=== PATIENT | male | born 1975 | race Caucasian/White ===

== ENCOUNTER → 2017-02-11 | Outpatient (CLI) | payer OTHER ==
[2017-02-11 11:25] LABS: BASO # 0.1 x10^3/uL (0.0-0.2); BASO % 1 % (0-3); EOS % 2 % (0-3); HEMATOCRIT 48.4 % (39.0-53.0); HEMOGLOBIN 16.5 g/dL (13.0-17.5); LYMPH # 2.4 x10^3/uL (1.0-4.8); LYMPH % 24 % (24-48); MEAN CORPUSCULAR HEMOGLOBIN 30 pg (25-35); MEAN CORPUSCULAR HGB CONC 34 g/dL (31-37); MEAN CORPUSCULAR VOLUME 87 fL (79-100); MONO % 8 % (0-9); NEUT % 66 % (31-73); PLATELET COUNT 170 x10^3/uL (140-400); RED BLOOD COUNT 5.58 x10^6/uL (4.30-5.70); RED CELL DISTRIBUTION WIDTH 14.3 % (11.5-14.5); WHITE BLOOD COUNT 10.2 x10^3/uL (4.0-11.0)
[2017-02-11 11:39] LABS: ALBUMIN 4.4 g/dL (3.4-5.0); ALBUMIN/GLOBULIN RATIO 1.1 (1.0-1.7); CALCIUM 9.6 mg/dL (8.5-10.1); CREATININE 1.4 mg/dL (0.7-1.3); GFR 55.6; POTASSIUM 3.8 mmol/L (3.5-5.1); TOTAL BILIRUBIN 0.7 mg/dL (0.2-1.0); TOTAL PROTEIN 8.3 g/dL (6.4-8.2)
[2017-02-11 11:40] LABS: CHOLESTEROL/HDL RATIO 7.3
== END | disposition home or self-care (01) ==
LOC: LAB 11:02
PROVIDERS: ATTEND Family Medicine
DX: I10 Essential (primary) hypertension (principal); E11.9 Type 2 diabetes mellitus without complications; E78.5 Hyperlipidemia, unspecified
CPT/HCPCS: 36415; 80053; 80061; 83036; 85027

== ENCOUNTER 2019-02-08 09:39 | Inpatient (IN) | payer OTHER ==
[2019-02-08] VITALS (14 sets, daily range): BP systolic 133–173; BP diastolic 80–108
[~2019-02-08] VITALS: Ht 182.9 cm; Wt 105.2 kg
[2019-02-08] MEDS ORDERED: ASPIRIN CHEWABLE 81 MG TABLET. PO ONE (10:00)
[2019-02-08 10:17] LABS: BASO # 0.1 x10^3/uL (0.0-0.2); BASO % 1 % (0-3); EOS # 0.1 x10^3/uL (0.0-0.7); EOS % 1 % (0-3); HEMATOCRIT 46.6 % (39.0-53.0); HEMOGLOBIN 15.6 g/dL (13.0-17.5); LYMPH # 1.3 x10^3/uL (1.0-4.8); LYMPH % 16 % (24-48); MEAN CORPUSCULAR HEMOGLOBIN 29 pg (25-35); MEAN CORPUSCULAR HGB CONC 34 g/dL (31-37); MEAN CORPUSCULAR VOLUME 87 fL (79-100); MONO # 0.6 x10^3/uL (0.0-1.1); MONO % 8 % (0-9); NEUT # 5.8 x10^3uL (1.8-7.7); NEUT % 74 % (31-73); PLATELET COUNT 141 x10^3/uL (140-400); RED BLOOD COUNT 5.33 x10^6/uL (4.30-5.70); RED CELL DISTRIBUTION WIDTH 14.2 % (11.5-14.5); WHITE BLOOD COUNT 7.9 x10^3/uL (4.0-11.0)
--- NOTE | 2019-02-08 10:28 | RAD ---
Chest radiograph 02/08/2019 9:57 AM INDICATION: Chest pain COMPARISON: None available TECHNIQUE: Frontal and lateral views of the chest are provided. FINDINGS: The cardiomediastinal silhouette is within normal limits. There are no pleural effusions. There is no pulmonary vascular congestion. There is no pneumothorax. The lungs are clear. No significant osseous abnormality is identified. IMPRESSION: No acute cardiopulmonary process. Electronically signed by: Enriqueta Mistry MD (02/08/2019 10:25 AM) [facility]
[2019-02-08 10:30] LABS: CALCIUM 9.3 mg/dL (8.5-10.1); GFR 81.2
[2019-02-08 10:31] LABS: PROTHROMBIN TIME PATIENT 12.4 SEC (11.7-14.0)
[2019-02-08 10:37] LABS: ALBUMIN 4.1 g/dL (3.4-5.0); ALBUMIN/GLOBULIN RATIO 1.2 (1.0-1.7); MAGNESIUM 1.9 mg/dL (1.8-2.4); TOTAL BILIRUBIN 0.7 mg/dL (0.2-1.0); TOTAL PROTEIN 7.6 g/dL (6.4-8.2)
--- NOTE | 2019-02-08 10:39 | RAD ---
CLINICAL HISTORY: Chest pain COMPARISON: None available. TECHNIQUE: Limited ultrasound examination of the right upper quadrant of the abdomen was performed FINDINGS: Liver: The liver measures 20.2 cm in length in the right mid clavicular line. Hepatic margin is smooth. Increased echogenicity of the liver consistent with hepatic steatosis.. There is no focal abnormality of the liver. Portal and hepatic venous flow is confirmed with normal waveforms. Pancreas is mostly obscured by overlying bowel gas. Gallbladder/Biliary: The gallbladder is normal in appearance without evidence for cholelithiasis. There is no wall thickening or pericholecystic fluid. There is no pain with direct transducer pressure over the gallbladder.The common bile duct measures 0.4 cm. The right kidney measures 13.4 cm in bipolar length. There is no free fluid in the subhepatic space. IMPRESSION: Hepatomegaly and hepatic steatosis. Electronically signed by: Wagner Mccormick MD (02/08/2019 10:36 AM) [id number]
--- NOTE | 2019-02-08 10:59 | PHYS DOC ---
Past Medical History Past Medical History: Diabetes-Type II, High Cholesterol, Hypertension Past Surgical History: Other Additional Past Surgical Histo: KNEE Alcohol Use: None Drug Use: None Adult General Chief Complaint Chief Complaint: CHEST PAIN HPI HPI Patient is a 43 year old male who presents with complaining of chest pain. Patient complaining of burning pain in the substernal area since yesterday as a constant pain with radiation to his jaw and associated with shortness of breath, dizziness, palpitation and nausea. Patient states he did not have pain last night but pain started this morning again and rated his pain 7/10. Patient denies fever and chills, cough and congestion, smoking or using drugs. Patient has history of hypertension, diabetes, dyslipidemia and did not take his diabetes medication for months because of lack of insurance. Review of Systems Review of Systems Constitutional: Denies fever or chills [] Eyes: Denies change in visual acuity, redness, or eye pain [] HENT: Denies nasal congestion or sore throat [] Respiratory: Denies cough , reports shortness of breath [] Cardiovascular: No additional information not addressed in HPI [] GI: Denies abdominal pain, vomiting, bloody stools or diarrhea , reports nausea[] : Denies dysuria or hematuria [] Musculoskeletal: Denies back pain or joint pain [] Integument: Denies rash or skin lesions [] Neurologic: Denies headache, focal weakness or sensory changes [] Endocrine: Denies polyuria or polydipsia [] All other systems were reviewed and found to be within normal limits, except as documented in this note. Current Medications Current Medications Current Medications Medications (Trade) Dose Ordered Sig/[facility] Start Time Stop Time Status Last Admin Dose Admin Aspirin (Children'S Aspirin) 324 mg 1X ONCE 02/08/19 10:00 02/08/19 10:27 DC 02/08/19 10:00 324 MG Allergies Allergies Physical Exam Physical Exam Constitutional: Well developed, well nourished, mild distress, non-toxic appearance. [] HENT: Normocephalic, atraumatic, oropharynx moist. Eyes: PERRLA, EOMI, conjunctiva normal, no discharge. [] Neck: Normal range of motion, no tenderness, supple, no stridor. [] Cardiovascular:Heart rate regular rhythm, no murmur [] Lungs & Thorax: Bilateral breath sounds clear to auscultation [] Abdomen: Bowel sounds normal, soft, no tenderness, no masses, no pulsatile masses. [] Skin: Warm, dry, no erythema, no rash. [] Back: No tenderness, no CVA tenderness. [] Extremities: No tenderness, no cyanosis, no clubbing, ROM intact, no edema. [] Neurologic: Alert and oriented X 3, normal motor function, normal sensory f unction, no focal deficits noted. [] Psychologic: Affect normal, judgement normal, mood normal. [] Current Patient Data Vital Signs Lab Values EKG EKG EKG Interpreted by me. EKG at 0 947 showed normal sinus rhythm at rate of 87, right bundle branch block, normal ID and QT intervals, no acute ST and T-wave abnormalities. Radiology/Procedures Radiology/Procedures [facility] [address] [place] [address] IMAGING REPORT Signed PATIENT: JUSTINE MCGUIRE ACCOUNT: [id number] : 1975 LOCATION: ER AGE: 43 SEX: M EXAM STATUS: PRE ER ORD. PHYSICIAN: TOMASZ RICKS MD REASON: chest pain PROCEDURE: ABDOMEN LTD CLINICAL HISTORY: Chest pain COMPARISON: None available. TECHNIQUE: Limited ultrasound examination of the right upper quadrant of the abdomen was performed FINDINGS: Liver: The liver measures 20.2 cm in length in the right mid clavicular line. Hepatic margin is smooth. Increased echogenicity of the liver consistent with hepatic steatosis.. There is no focal abnormality of the liver. Portal and hepatic venous flow is confirmed with normal waveforms. Pancreas is mostly obscured by overlying bowel gas. Gallbladder/Biliary: The gallbladder is normal in appearance without evidence for cholelithiasis. There is no wall thickening or pericholecystic fluid. There is no pain with direct transducer pressure over the gallbladder.The common bile duct measures 0.4 cm. The right kidney measures 13.4 cm in bipolar length. There is no free fluid in the subhepatic space. IMPRESSION: Hepatomegaly and hepatic steatosis. Electronically signed by: Wagner Duke MD (02/08/2019 10:36 AM) [id number] DICTATED and SIGNED BY: WAGNER DUKE MD DATE: 02/08/19 1036 [facility] [address] [place] [address] IMAGING REPORT Signed PATIENT: JUSTINE MCGUIRE ACCOUNT: [id number] : 1975 LOCATION: ER AGE: 43 SEX: M EXAM STATUS: PRE ER ORD. PHYSICIAN: TOMASZ RICKS MD REASON: chest pain,pt states feels like heartburn, denies trouble breathing. PROCEDURE: CHEST PA & LATERAL Chest radiograph 02/08/2019 9:57 AM INDICATION: Chest pain COMPARISON: None available TECHNIQUE: Frontal and lateral views of the chest are provided. FINDINGS: The cardiomediastinal silhouette is within normal limits. There are no pleural effusions. There is no pulmonary vascular congestion. There is no pneumothorax. The lungs are clear. No significant osseous abnormality is identified. IMPRESSION: No acute cardiopulmonary process. Electronically signed by: Mukesh Stinson MD (02/08/2019 10:25 AM) [facility] DICTATED and SIGNED BY: MUKESH STINSON MD DATE: 02/08/19 1025 Course & Med Decision Making Course & Med Decision Making Pertinent Labs and Imaging studies reviewed. (See chart for details) Evaluation of patient in ER showed 43-year-old male patient with multiple cardiac risk factors presented with chest pain since yesterday. Patient had unremarkable EKG, labs, gallbladder ultrasound. Because of several cardiac risk factor plan to admit patient for more evaluation. Patient requiring admission for further evaluation and treatment. Discussed with Dr. Barr who is in agreement with admission. Discussed findings and plan with patient and family, who acknowledge understanding and agreement. While patient was holding in ER , he had asymptomatic episode of V. tach for a few seconds. Dr. Del Angel nurse practitioner was informed at 1210 and he evaluated the patient in ER. Dragon Disclaimer Dragon Disclaimer This electronic medical record was generated, in whole or in part, using a voice recognition dictation system. Departure Departure Impression: Primary Impression: Chest pain Additional Impression: V tach Disposition: ADMITTED INPATIENT (Admitted at 11 intermittent) Admitting Physician: Ami Barr (accepted admission at 1110) Condition: IMPROVED Referrals: UNKNOWN PCP NAME (PCP) Problem Qualifiers Primary Impression: Chest pain Chest pain type: unspecified Qualified Codes: R07.9 - Chest pain, unspecified TOMASZ RICKS MD February 08, 2019 10:59
--- NOTE | 2019-02-08 11:57 | EKG ---
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
--- NOTE | 2019-02-08 12:10 | NUR ---
The patient, JUSTINE MCGUIRE, 43 y/o, M admitted by MERY MCGOWAN MD, was given written information regarding hospital policies, unit procedures and contact persons. Valuables were checked.
--- NOTE | 2019-02-08 12:47 | PDOC2 ---
REYNALDO LAM TRAFFIC PERSONNEL SUPERVISOR 02/08/19 1247: CARDIAC CONSULT DATE OF CONSULT Date of Consult DATE: 02/08/19 TIME: 12:33 REASON FOR CONSULT Reason for Consult: Chest pain, VT REFERRING PHYSICIAN Referring Physician: Soniya SOURCE Source: Chart review, Patient HISTORY OF PRESENT ILLNESS HISTORY OF PRESENT ILLNESS This is a pleasant 43 yo male admitted for complains of chest pain and SOA. Pt is currently stressed out and in the process of divorce and dealing with his daughter who recently had some suicidal tendencies. Pt has DM2, HLP, HTN and has been tapering his medications due to lack of insurance which he has not straightened out and now has health coverage. Throughout the day yesterday he has been feeling heartburn across his lower chest and tried to treat self with tums but did not help much and then finally dissipated with and was able to go to sleep. He was at his PCPs office yesterday and told them about his symptoms and he was told that if recurs to come to ED. This recurred this 5 AM and lasted till 6 AM. This was associated with SOA along with his discomfort yesterday. Somewhat fatigue but blames it on his stress. He did experience left arm tingling Sandra last week. He was told 07/2018 that his EKG was checked on 07/2018 and was told that the right side of his heart was fat but does not recall any echocardiogram and definitely no stress test. Denies any palpitations, syncope, or frequent dizziness. No prior hx of CAD, VTE, or arrhythmias. PAST MEDICAL HISTORY Cardiovascular: HTN, Hyperlipidemia PAST SURGICAL HISTORY Past Surgical History: Arthroscopy (right knee repair) FAMILY HISTORY Family History: Coronary Artery Disease (grandmother premature CAD) SOCIAL HISTORY Smoke: No ALCOHOL: none Drugs: None Lives: with Family CURRENT MEDICATIONS CURRENT MEDICATIONS Current Medications Medications (Trade) Dose Ordered Sig/Alba Route PRN Reason Start Time Stop Time Status Last Admin Dose Admin Aspirin (Children'S Aspirin) 324 mg 1X ONCE PO 02/08/19 10:00 02/08/19 10:27 DC 02/08/19 10:00 ALLERGIES ALLERGIES: Coded Allergies: cortisone (Verified Allergy, Unknown, PSYCHOSIS, 02/08/19) ROS Review of System 14 point ROS evaluated with pertinent positives noted per HPI PHYSICAL EXAM General: Alert, Oriented X3, Cooperative, No acute distress HEENT: Atraumatic, Mucous membr. moist/pink Lungs: Clear to auscultation, Normal air movement Heart: Regular rate (SR), Normal S1, Normal S2, Other (2/6 systolic murmur to LLS border) Abdomen: Soft, No tenderness Extremities: No cyanosis, No edema Skin: No breakdown, No significant lesion Neuro: Normal speech, Sensation intact Psych/Mental Status: Mental status NL, Other (anxious) MUSCULOSKELETAL: Osteoarthritic changes both hands VITALS VITALS Vital Signs Date Time Temp Pulse Resp B/P (MAP) Pulse Ox O2 Delivery O2 Flow Rate FiO2 02/08/19 10:26 98.3 91 18 151/101 (118) 97 Room Air 98.3 LABS Lab: Laboratory Tests Test 02/08/19 10:10 White Blood Count 7.9 x10^3/uL (4.0-11.0) Red Blood Count 5.33 x10^6/uL (4.30-5.70) Hemoglobin 15.6 g/dL (13.0-17.5) Hematocrit 46.6 % (39.0-53.0) Mean Corpuscular Volume 87 fL (79-100) Mean Corpuscular Hemoglobin 29 pg (25-35) Mean Corpuscular Hemoglobin Concent 34 g/dL (31-37) Red Cell Distribution Width 14.2 % (11.5-14.5) Platelet Count 141 x10^3/uL (140-400) Neutrophils (%) (Auto) 74 % (31-73) Lymphocytes (%) (Auto) 16 % (24-48) Monocytes (%) (Auto) 8 % (0-9) Eosinophils (%) (Auto) 1 % (0-3) Basophils (%) (Auto) 1 % (0-3) Neutrophils # (Auto) 5.8 x10^3uL (1.8-7.7) Lymphocytes # (Auto) 1.3 x10^3/uL (1.0-4.8) Monocytes # (Auto) 0.6 x10^3/uL (0.0-1.1) Eosinophils # (Auto) 0.1 x10^3/uL (0.0-0.7) Basophils # (Auto) 0.1 x10^3/uL (0.0-0.2) Prothrombin Time 12.4 SEC (11.7-14.0) Prothromb Time International Ratio 1.0 (0.8-1.1) Sodium Level 141 mmol/L (136-145) Potassium Level 4.0 mmol/L (3.5-5.1) Chloride Level 103 mmol/L (98-107) Carbon Dioxide Level 27 mmol/L (21-32) Anion Gap 11 (6-14) Blood Urea Nitrogen 15 mg/dL (8-26) Creatinine 1.0 mg/dL (0.7-1.3) Estimated GFR (Cockcroft-Gault) 81.2 BUN/Creatinine Ratio 15 (6-20) Glucose Level 208 mg/dL (70-99) Calcium Level 9.3 mg/dL (8.5-10.1) Magnesium Level 1.9 mg/dL (1.8-2.4) Total Bilirubin 0.7 mg/dL (0.2-1.0) Aspartate Amino Transf (AST/SGOT) 10 U/L (15-37) Alanine Aminotransferase (ALT/SGPT) 27 U/L (16-63) Alkaline Phosphatase 59 U/L (46-116) Creatine Kinase 91 U/L (39-308) Troponin I Quantitative < 0.017 ng/mL (0.000-0.055) RU-Sdy-G-Type Natriuretic Peptide 98 pg/mL (0-124) Total Protein 7.6 g/dL (6.4-8.2) Albumin 4.1 g/dL (3.4-5.0) Albumin/Globulin Ratio 1.2 (1.0-1.7) Lipase 103 U/L (73-393) ASSESSMENT/PLAN ASSESSMENT/PLAN 1. Chest pain: with mixed features. Ischemia high in the differential suspect UA. Initial trop nml 2. NSVT: 10 sec 3. Abnormal EKG: RBBB possibly noted 07/2018 at [facility]. 4. HTN: labile. [id number] 5. HLP 6. DM2 7. Anxiety/stress 8. Morbid obesity with possible BARTON 9. Periodontal disease Recommendations 1. TTE, TSH, lipids, A1C, CRP 2. ASA. Start IVF. LHC today, risks and benefits discussed agreeable to proceed. 3. Secondary prevention measures ROSSANA PURVIS MD 02/09/19 0857: CARDIAC CONSULT ASSESSMENT/PLAN ASSESSMENT/PLAN Patient seen and examined 5/7/19. Agree with [employer]'s assessment and plan. CP with mixed features. TX ruled out. Episode of NSVT noted. Agree with cardiac cath - risks and benefits explained Thank you for your consultation REYNALDO LAM APRN February 08, 2019 12:47 ROSSANA PURVIS MD February 09, 2019 08:57
[2019-02-08 13:09] LABS: CHOLESTEROL/HDL RATIO 4.5
[2019-02-08] MEDS ORDERED: amLODIPine BESYLATE 10 MG TABLET PO ONE (13:30)
[2019-02-08] MEDS ORDERED: LABETALOL 20 MG/4 ML DISP.SYRIN. IVP PRN (13:30)
[2019-02-08 13:32] LABS: BILIRUBIN,URINE NEGATIVE (NEG); CLARITY,URINE CLEAR; COLOR,URINE YELLOW; NITRITE,URINE NEGATIVE (NEG); PH,URINE 6.5; PROTEIN,URINE NEGATIVE (NEG-TRACE); UROBILINOGEN,URINE 0.2 mg/dL (0.2 mg/dL)
[2019-02-08 13:40] LABS: BARBITURATES NEG (NEG); BENZODIAZEPINES NEG (NEG); CANNABINOIDS NEG (NEG); COCAINE NEG (NEG); METHADONE NEG (NEG); OPIATES NEG (NEG); PHENCYCLIDINE NEG (NEG)
[2019-02-08 13:41] LABS: AMPHETAMINE/METHAMPHETAMINE NEG (NEG)
[2019-02-08 13:42] LABS: BACTERIA,URINE 0 /HPF (0-FEW); HYALINE CASTS, URINE FEW /HPF; RBC,URINE OCC /HPF (0-2); WBC,URINE OCC /HPF (0-4)
--- NOTE | 2019-02-08 13:51 | PDOC1 ---
History and Physical Date of Admission Date of Admission DATE: 02/08/19 TIME: 13:47 Identification/Chief Complaint Chief Complaint chest pain at rest Source Source: Caregiver, Chart review, Patient History of Present Illness History of Present Illness 43-year-old heavyset white male, BMI 32, recently stressed with undergoing divorce and the daughter with some suicidal history, chest pain happened at rest. Some SOA, no diaphoresis, no pre, syncopal symptoms. Left-sided CP, no radiation. Lasted intermittently for hours. NO identifiable alleviating or precip factor, Advised by PCP to come to the ER. Labs are otherwise unremarka ble but because of risk factors planned for LHC later by cardiology. CRP 5.6 the rest of the labs okay. Blood pressure on the high side. History diabetes on OHA with unknown hemoglobin A1c, hypertension, dyslipidemia. No history CVA Agreeable to C Past Medical History Cardiovascular: HTN, Hyperlipidemia Endocrine: Diabetes Past Surgical History Past Surgical History: Arthroscopy (right knee repair) Family History Family History: Coronary Artery Disease (grandmother premature CAD), Heart Disease (grandmother age 55) Social History Smoke: No ALCOHOL: none Drugs: None Current Medications Current Medications Current Medications Aspirin (Children'S Aspirin) 324 mg 1X ONCE PO Last administered on 02/08/19at 10:00; Start 02/08/19 at 10:00; Stop 02/08/19 at 10:27; Status DC Atorvastatin Calcium (Lipitor) 40 mg QHS PO ; Start 02/08/19 at 21:00 Pantoprazole Sodium (Protonix) 40 mg DAILYAC PO ; Start 02/08/19 at 14:00 Amlodipine Besylate (Norvasc) 10 mg 1X ONCE PO ; Start 02/08/19 at 13:30; Stop 02/08/19 at 13:31; Status DC Labetalol HCl (Normodyne Iv Push) 20 mg PRN Q2HR PRN IVP HYPERTENSION, SEE COMMENTS; Start 02/08/19 at 13:30 Allergies Allergies: Coded Allergies: cortisone (Verified Allergy, Unknown, PSYCHOSIS, 02/08/19) ROS Review of System As per history of present illness, the rest of ROS 14 point negative Physical Exam General: Alert, Oriented X3, Cooperative, No acute distress HEENT: PERRLA, EOMI Lungs: Clear to auscultation, Normal air movement Heart: S1S2, RRR, no thrills, no rubs, no gallops, no murmurs Cardiovascular: S1 Abdomen: Normal bowel sounds, Soft, No tenderness, No hepatosplenomegaly, No masses Male Genitals Exam: normal genitalia, normal prostate Rectal Exam: not examined PELVIC: Nml ext genitalia Extremities: No clubbing, No cyanosis, No edema, Normal pulses, No tenderness/swelling Skin: No rashes, No breakdown, No significant lesion Neuro: Normal gait, Normal speech, Strength at 5/5 X4 ext, Normal tone, S ensation intact, Cranial nerves 3-12 NL, Reflexes 2+ Psych/Mental Status: Mental status NL, Mood NL Vitals Vitals Vital Signs Date Time Temp Pulse Resp B/P (MAP) Pulse Ox O2 Delivery O2 Flow Rate FiO2 02/08/19 10:26 98.3 91 18 151/101 (118) 97 Room Air 98.3 Labs Labs Laboratory Tests Test 02/08/19 10:10 02/08/19 13:00 White Blood Count 7.9 x10^3/uL (4.0-11.0) Red Blood Count 5.33 x10^6/uL (4.30-5.70) Hemoglobin 15.6 g/dL (13.0-17.5) Hematocrit 46.6 % (39.0-53.0) Mean Corpuscular Volume 87 fL (79-100) Mean Corpuscular Hemoglobin 29 pg (25-35) Mean Corpuscular Hemoglobin Concent 34 g/dL (31-37) Red Cell Distribution Width 14.2 % (11.5-14.5) Platelet Count 141 x10^3/uL (140-400) Neutrophils (%) (Auto) 74 % (31-73) Lymphocytes (%) (Auto) 16 % (24-48) Monocytes (%) (Auto) 8 % (0-9) Eosinophils (%) (Auto) 1 % (0-3) Basophils (%) (Auto) 1 % (0-3) Neutrophils # (Auto) 5.8 x10^3uL (1.8-7.7) Lymphocytes # (Auto) 1.3 x10^3/uL (1.0-4.8) Monocytes # (Auto) 0.6 x10^3/uL (0.0-1.1) Eosinophils # (Auto) 0.1 x10^3/uL (0.0-0.7) Basophils # (Auto) 0.1 x10^3/uL (0.0-0.2) Prothrombin Time 12.4 SEC (11.7-14.0) Prothromb Time International Ratio 1.0 (0.8-1.1) Sodium Level 141 mmol/L (136-145) Potassium Level 4.0 mmol/L (3.5-5.1) Chloride Level 103 mmol/L (98-107) Carbon Dioxide Level 27 mmol/L (21-32) Anion Gap 11 (6-14) Blood Urea Nitrogen 15 mg/dL (8-26) Creatinine 1.0 mg/dL (0.7-1.3) Estimated GFR (Cockcroft-Gault) 81.2 BUN/Creatinine Ratio 15 (6-20) Glucose Level 208 mg/dL (70-99) Calcium Level 9.3 mg/dL (8.5-10.1) Magnesium Level 1.9 mg/dL (1.8-2.4) Total Bilirubin 0.7 mg/dL (0.2-1.0) Aspartate Amino Transf (AST/SGOT) 10 U/L (15-37) Alanine Aminotransferase (ALT/SGPT) 27 U/L (16-63) Alkaline Phosphatase 59 U/L (46-116) Creatine Kinase 91 U/L (39-308) Troponin I Quantitative < 0.017 ng/mL (0.000-0.055) C-Reactive Protein, Quantitative 5.6 mg/L (0-3.3) QM-Ukk-K-Type Natriuretic Peptide 98 pg/mL (0-124) Total Protein 7.6 g/dL (6.4-8.2) Albumin 4.1 g/dL (3.4-5.0) Albumin/Globulin Ratio 1.2 (1.0-1.7) Triglycerides Level 95 mg/dL (0-150) Cholesterol Level 188 mg/dL (0-200) LDL Cholesterol, Calculated 127 mg/dL (0-100) VLDL Cholesterol, Calculated 19 mg/dL (0-40) Non-HDL Cholesterol Calculated 146 mg/dL (0-129) HDL Cholesterol 42 mg/dL (40-60) Cholesterol/HDL Ratio 4.5 Lipase 103 U/L (73-393) Thyroid Stimulating Hormone (TSH) 2.730 uIU/mL (0.358-3.74) Urine Collection Type Unknown Urine Color Yellow Urine Clarity Clear Urine pH 6.5 Urine Specific Rogers >=1.030 Urine Protein Negative mg/dL (NEG-TRACE) Urine Glucose (UA) >=1000 mg/dL (NEG) Urine Ketones (Stick) Negative mg/dL (NEG) Urine Blood Negative (NEG) Urine Nitrite Negative (NEG) Urine Bilirubin Negative (NEG) Urine Urobilinogen Dipstick 0.2 mg/dL (0.2 mg/dL) Urine Leukocyte Esterase Negative (NEG) Urine RBC Occ /HPF (0-2) Urine WBC Occ /HPF (0-4) Urine Bacteria 0 /HPF (0-FEW) Urine Hyaline Casts Few /HPF Urine Mucus Slight /LPF Urine Opiates Screen Neg (NEG) Urine Methadone Screen Neg (NEG) Urine Barbiturates Neg (NEG) Urine Phencyclidine Screen Neg (NEG) Urine Amphetamine/Methamphetamine Neg (NEG) Urine Benzodiazepines Screen Neg (NEG) Urine Cocaine Screen Neg (NEG) Urine Cannabinoids Screen Neg (NEG) Urine Ethyl Alcohol Neg (NEG) Laboratory Tests Test 02/08/19 10:10 02/08/19 13:00 White Blood Count 7.9 x10^3/uL (4.0-11.0) Red Blood Count 5.33 x10^6/uL (4.30-5.70) Hemoglobin 15.6 g/dL (13.0-17.5) Hematocrit 46.6 % (39.0-53.0) Mean Corpuscular Volume 87 fL (79-100) Mean Corpuscular Hemoglobin 29 pg (25-35) Mean Corpuscular Hemoglobin Concent 34 g/dL (31-37) Red Cell Distribution Width 14.2 % (11.5-14.5) Platelet Count 141 x10^3/uL (140-400) Neutrophils (%) (Auto) 74 % (31-73) Lymphocytes (%) (Auto) 16 % (24-48) Monocytes (%) (Auto) 8 % (0-9) Eosinophils (%) (Auto) 1 % (0-3) Basophils (%) (Auto) 1 % (0-3) Neutrophils # (Auto) 5.8 x10^3uL (1.8-7.7) Lymphocytes # (Auto) 1.3 x10^3/uL (1.0-4.8) Monocytes # (Auto) 0.6 x10^3/uL (0.0-1.1) Eosinophils # (Auto) 0.1 x10^3/uL (0.0-0.7) Basophils # (Auto) 0.1 x10^3/uL (0.0-0.2) Prothrombin Time 12.4 SEC (11.7-14.0) Prothromb Time International Ratio 1.0 (0.8-1.1) Sodium Level 141 mmol/L (136-145) Potassium Level 4.0 mmol/L (3.5-5.1) Chloride Level 103 mmol/L (98-107) Carbon Dioxide Level 27 mmol/L (21-32) Anion Gap 11 (6-14) Blood Urea Nitrogen 15 mg/dL (8-26) Creatinine 1.0 mg/dL (0.7-1.3) Estimated GFR (Cockcroft-Gault) 81.2 BUN/Creatinine Ratio 15 (6-20) Glucose Level 208 mg/dL (70-99) Calcium Level 9.3 mg/dL (8.5-10.1) Magnesium Level 1.9 mg/dL (1.8-2.4) Total Bilirubin 0.7 mg/dL (0.2-1.0) Aspartate Amino Transf (AST/SGOT) 10 U/L (15-37) Alanine Aminotransferase (ALT/SGPT) 27 U/L (16-63) Alkaline Phosphatase 59 U/L (46-116) Creatine Kinase 91 U/L (39-308) Troponin I Quantitative < 0.017 ng/mL (0.000-0.055) C-Reactive Protein, Quantitative 5.6 mg/L (0-3.3) EW-Vgp-O-Type Natriuretic Peptide 98 pg/mL (0-124) Total Protein 7.6 g/dL (6.4-8.2) Albumin 4.1 g/dL (3.4-5.0) Albumin/Globulin Ratio 1.2 (1.0-1.7) Triglycerides Level 95 mg/dL (0-150) Cholesterol Level 188 mg/dL (0-200) LDL Cholesterol, Calculated 127 mg/dL (0-100) VLDL Cholesterol, Calculated 19 mg/dL (0-40) Non-HDL Cholesterol Calculated 146 mg/dL (0-129) HDL Cholesterol 42 mg/dL (40-60) Cholesterol/HDL Ratio 4.5 Lipase 103 U/L (73-393) Thyroid Stimulating Hormone (TSH) 2.730 uIU/mL (0.358-3.74) Urine Collection Type Unknown Urine Color Yellow Urine Clarity Clear Urine pH 6.5 Urine Specific Rogers >=1.030 Urine Protein Negative mg/dL (NEG-TRACE) Urine Glucose (UA) >=1000 mg/dL (NEG) Urine Ketones (Stick) Negative mg/dL (NEG) Urine Blood Negative (NEG) Urine Nitrite Negative (NEG) Urine Bilirubin Negative (NEG) Urine Urobilinogen Dipstick 0.2 mg/dL (0.2 mg/dL) Urine Leukocyte Esterase Negative (NEG) Urine RBC Occ /HPF (0-2) Urine WBC Occ /HPF (0-4) Urine Bacteria 0 /HPF (0-FEW) Urine Hyaline Casts Few /HPF Urine Mucus Slight /LPF Urine Opiates Screen Neg (NEG) Urine Methadone Screen Neg (NEG) Urine Barbiturates Neg (NEG) Urine Phencyclidine Screen Neg (NEG) Urine Amphetamine/Methamphetamine Neg (NEG) Urine Benzodiazepines Screen Neg (NEG) Urine Cocaine Screen Neg (NEG) Urine Cannabinoids Screen Neg (NEG) Urine Ethyl Alcohol Neg (NEG) VTE Prophylaxis Ordered VTE Prophylaxis Devices: Yes VTE Pharmacological Prophylaxi: Yes Assessment/Plan Assessment/Plan chest pain with risk factors Hypertension, accelerated POA Diabetes type 2 on OHA unknown A1c Dyslipidemia Obesity Plan: nothing by mouth [facility], check A1c, follow cards recs I have reconciled home meds Sliding-scale insulin MERY MCGOWAN MD February 08, 2019 13:51
[2019-02-08] MEDS: PANTOPRAZOLE 40 MG TABLET.DR. PO SCH (13:55)
[2019-02-08] MEDS ORDERED: IOHEXOL 300 MG/ML 100ML VIAL. ONE (13:57)
[2019-02-08] MEDS ORDERED: LIDOCAINE 1% PF 2 ML VIAL. ONE (13:57)
[2019-02-08] MEDS ORDERED: ACETAMINOPHEN/CODEINE 300/30MG TABLET. PO PRN (14:00)
[2019-02-08] MEDS ORDERED: DEXTROSE 50% 25 GM / 50ML DISP.SYRIN. IV PRN (14:00)
[2019-02-08] MEDS ORDERED: ONDANSETRON PF 4 MG/2 ML VIAL. IV PRN (14:00)
[2019-02-08] MEDS ORDERED: ACETAMINOPHEN 500 MG TABLET PO PRN (14:00)
[2019-02-08] MEDS ORDERED: cloNIDine HCL 0.1 MG TABLET PO PRN (14:00)
[2019-02-08] MEDS ORDERED: DAPA5TAB PO (14:00)
[2019-02-08] MEDS ORDERED: IBUPROFEN 400 MG TABLET. PO PRN (14:00)
[2019-02-08] MEDS ORDERED: GLIM4TAB2 PO (14:00)
[2019-02-08] MEDS ORDERED: LISI-130 PO (14:00)
[2019-02-08] MEDS ORDERED: FENO160T PO (14:01)
[2019-02-08] MEDS ORDERED: SITA1TAB11 PO (14:01)
[2019-02-08] MEDS ORDERED: MIDAZOLAM HCL/PF 2 MG/2 ML VIAL. ONE ×2 (14:40→15:30)
[2019-02-08] MEDS ORDERED: VERAPAMIL 5 MG/2 ML VIAL. ONE (14:40)
[2019-02-08] MEDS ORDERED: HEPARIN for IV BOLUS 10,000 UNIT/10 ML VIAL. ONE (14:40)
[2019-02-08] MEDS ORDERED: NITROGLYCERIN 200 MCG/2 ML SYRINGE FOR CATH/VASC LAB. ONE (14:40)
[2019-02-08] MEDS ORDERED: fentaNYL PF VIAL 100 MCG/2 ML VIAL ONE (14:40)
[2019-02-08] MEDS ORDERED: fentaNYL PF VIAL 100 MCG/2 ML VIAL IV ONE (15:00)
[2019-02-08] MEDS ORDERED: HEPARIN for IV BOLUS 10,000 UNIT/10 ML VIAL. IART ONE (15:00)
[2019-02-08] MEDS ORDERED: LIDOCAINE 1% PF 2 ML VIAL. INJ ONE (15:00)
[2019-02-08] MEDS ORDERED: MIDAZOLAM HCL/PF 2 MG/2 ML VIAL. IV ONE (15:00)
[2019-02-08] MEDS ORDERED: IOHEXOL 300 MG/ML 100ML VIAL. IART ONE (15:00)
[2019-02-08] MEDS ORDERED: VERAPAMIL 5 MG/2 ML VIAL. IART ONE (15:00)
[2019-02-08] MEDS ORDERED: NITROGLYCERIN 200 MCG/2 ML SYRINGE FOR CATH/VASC LAB. IART ONE (15:00)
--- NOTE | 2019-02-08 16:02 | CARD ---
MR#: [id number] Date of Study: 02/08/2019 Ordering Physician: REYNALDO LAM, Referring Physician: MERY MCGOWAN Tech: RT Leigha (Jose) PADMINI APPROVED REPORT Technologist: RT Leigha (R) PADMINI Nurse: Madonna Smith RN Procedure(s) performed: Left heart catheterization, selective coronary angiography and left ventricul ography via right transradial approach Fluoro time 6.1 mins Dose [id number] Contrast 116 ml Omnipaque Moderate sedation 20 minutes INDICATION The indication(s) include : Unstable angina and non sustained ventricular tachycardia. PROCEDURE NARRATIVE After explaining the risks, benefits and alternative options, informed consent was obtained from solange ent. Patient was brought to the cardiac Mechanical Research Engineer and right wrist was prepped and draped in the usual fashion after confirming a positive modified Kristian's test. Arterial access was obtained in the righ t radial artery and a 6 Kittitian sheath was inserted. 6 Kittitian Chang catheter was used to perform berna ective angiography of the left coronary artery and also left ventriculography. 6 Kittitian JR4 was use d to perform selective angiography of right coronary artery. Patient tolerated the procedure well. Hemostasis was achieved using TR band. There were no immediate complications. The following finding s were noted. FINDINGS 1. Hemodynamics: Left ventricular end-diastolic pressure of 9 mmHg. No pullback gradient across the aortic valve. 2. Left ventriculography: Normal left ventricle systolic function with ejection fraction estimated at 60%. No significant mitral regurgitation seen. 3. Coronary angiography: a. The left main coronary artery arose from the left sinus of Valsalva, gave rise to the left anteri or descending and left circumflex arteries and did not show any significant stenosis. b. The left anterior descending artery did not show any significant stenosis. c. The left circumflex artery was a large and dominant vessel that did not show any significant sten osis. d. The right coronary artery was non dominant vessel arising from the right sinus of Valsalva that d id not show any significant stenosis. Conclusion 1. No significant coronary artery disease 2. Normal left ventricular systolic function with ejection fraction estimated at 60%. Signed by : Rene Diane, Electronically Approved : 02/08/2019 16:02:14
--- NOTE | 2019-02-08 16:03 | PDOC ---
MODERATE SEDATION ASSESSMENT RISKS/ALTERNATIVES Risks/Alternatives Risks and alternatives of this type of sedation and procedure discussed with: RISK/ALTERNATIVES: Patient H & P ON CHART H & P H & P on chart and reviewed for co-morbid conditions and appropriate labs. H&P ON CHART: Yes STATUS PREG STATUS ASSESSED: N/A MEDS/ALLERGIES REVIEWED Meds/Allergies Reviewed Medications and Allergies including time and route of recently administered narcotics and sedatives. MEDS/ALLERGIES REVIEWED: Yes ASA RATING ASA RATING: II AIRWAY ASSESSMENT Airway Assessment Airway patency, oral function limitations, presence of caps, crowns, dentures, partials, and ability to extend neck assessed. AIRWAY ASSESSMENT: Yes MALLAMPATI SCORE MALLAMPATI SCORE: II PRE-SEDATION ASSESSMENT PRE-SEDATION ASSESSMENT: Yes ROSSANA PURVIS MD February 08, 2019 16:03
[2019-02-08] MEDS ORDERED: NITROGLYCERIN SUBLINGUAL 0.4 MG BOTTLE OF 25. SL PRN (16:15)
[2019-02-08] MEDS: INSULIN LISPRO 300 UNITS/3 ML INSULN.PEN. SQ SCH (16:35)
[2019-02-08] MEDS: IV 1/2 NORMAL SALINE 1,000 ML IV SCH (16:35)
[2019-02-08] MEDS: LORazepam 0.5 MG TABLET PO PRN (20:05)
[2019-02-08] MEDS ORDERED: ATORVASTATIN CALCIUM 40 MG TABLET. PO SCH (21:00)
[2019-02-09 00:12] LABS: HEMOGLOBIN A1C 7.6 % (4.8-5.6)
[2019-02-09 03:15] VITALS: BP 133/81
[2019-02-09 07:00] VITALS: BP 148/92
[2019-02-09] MEDS: INSULIN LISPRO 300 UNITS/3 ML INSULN.PEN. SQ SCH ×2 (08:00→12:32)
[2019-02-09] MEDS: IV 1/2 NORMAL SALINE 1,000 ML IV SCH (08:43)
[2019-02-09] MEDS: PANTOPRAZOLE 40 MG TABLET.DR. PO SCH (09:03)
--- NOTE | 2019-02-09 09:25 | CARD ---
MR#: [id number] Date of Study: 02/09/2019 Ordering Physician: REYNALDO LAM, Referring Physician: MERY MCGOWAN, Tech: Poornima Juarez APPROVED REPORT EXAM: Two-dimensional and M-mode echocardiogram with Doppler and color Doppler. Other Information Quality : AverageHR: 81bpm INDICATION Chest Pain 2D DIMENSIONS RVDd3.3 (2.9-3.5cm)Left Atrium(2D)3.9 (1.6-4.0cm) IVSd1.5 (0.7-1.1cm)Aortic Root(2D)3.3 (2.0-3.7cm) LVDd5.2 (3.9-5.9cm)LVOT Diameter2.2 (1.8-2.4cm) PWd1.3 (0.7-1.1cm)LVDs4.3 (2.5-4.0cm) FS (%) 18.4 %SV49.5 ml LVEF(%)37.8 (>50%) Aortic Valve AoV Peak Tonio.144.7cm/sAoV VTI21.5cm AO Peak GR.8.4mmHgLVOT Peak Tonio.106.2cm/s LVOT VTI 18.64cmAO Mean GR.4mmHg MICHELLE (VMAX)1.53jp3FCE (VTI)3.23cm2 Mitral Valve MV E Fkxcnjmc37.6cm/sMV DECEL CHGB010lt MV A Cxplbjod65.3cm/sMV VEJ59xc E/A Ratio0.9MVA (PHT)4.95cm2 TDI E/Lateral E'10.8E/Medial E'11.9 Pulmonary Valve PV Peak Zyejlofb875.3cm/sPV Peak Grad.6mmHg Tricuspid Valve TR P. Jxrxlujw804qr/sRAP FGSDMQOC6ueDw TR Peak Gr.99ibTaVXYM17pfOr Pulmonary Vein S1 Gpoyqjgj41.9cm/sD2 Czqqddcm84.9cm/s PVa aisdrqak642pbwd LEFT VENTRICLE The left ventricle is normal size. There is moderate concentric left ventricular hypertrophy. The lef t ventricular systolic function is normal. The ejection fraction is estimated at 55%. There is normal LV segmental wall motion. Transmitral Doppler flow pattern is Grade I-abnormal relaxation pattern. RIGHT VENTRICLE The right ventricle is normal size. There is normal right ventricular wall thickness. The right ventr icular systolic function is normal. ATRIA The left atrium size is normal. The right atrium size is normal. The interatrial septum is intact wit h no evidence for an atrial septal defect or patent foramen ovale as noted on 2-D or Doppler imaging. AORTIC VALVE The aortic valve is normal in structure and function. Doppler and Color Flow revealed no significant aortic regurgitation. There is no significant aortic valvular stenosis. MITRAL VALVE The mitral valve is thickened but opens well. There is no evidence of mitral valve prolapse. There is no mitral valve stenosis. Doppler and Color Flow revealed trace mitral valve regurgitation. TRICUSPID VALVE The tricuspid valve is normal in structure and function. Doppler and Color Flow revealed no tricuspid valve regurgitation noted. There is no tricuspid valve stenosis. PULMONIC VALVE The pulmonary valve is normal in structure and function. Doppler and Color Flow revealed trace to mil d pulmonic valvular regurgitation. GREAT VESSELS The aortic root is normal in size. The IVC is normal in size and collapses >50% with inspiration. PERICARDIAL EFFUSION There is no evidence of significant pericardial effusion. Critical Notification Critical Value: No <Conclusion> The left ventricular systolic function is normal. The ejection fraction is estimated at 55%. There is normal LV segmental wall motion. Trace mitral valve regurgitation. There is no evidence of significant pericardial effusion. Signed by : Rene Diane, Electronically Approved : 02/09/2019 09:24:54
[2019-02-09 11:00] VITALS: BP 139/78
--- NOTE | 2019-02-09 11:13 | NUR ---
SS following for discharge planning. SS reviewed pt chart. Pt is from home and is currently on room air. SS provided pt with information on healthcare DPOA per request. No discharge needs noted at this time. SS will continue to follow for discharge planning.
--- NOTE | 2019-02-09 11:27 | PDOC ---
REYNALDO LAM QUILL CLEANING MACHINE OPERATOR 02/09/19 1127: CARDIO Progress Notes Date and Time Date of Service 02/09/2019 Time of Evaluation 1100 Subjective Subjective: No Chest Pain, No shortness of breath, No Palpitations Vitals Vitals Vital Signs Date Time Temp Pulse Resp B/P (MAP) Pulse Ox O2 Delivery O2 Flow Rate FiO2 02/09/19 11:00 98.2 83 18 139/78 (98) 97 Room Air 98.2 02/08/19 20:00 2.0 Weight Weight [ ] Input and Output Intake and Output Intake and Output 02/09/19 07:00 Intake Total 940 ml Balance 940 ml Intake Oral 940 ml # Voids 2 Laboratory Labs Laboratory Tests Test 02/08/19 13:00 02/08/19 16:15 02/08/19 16:33 02/08/19 19:25 Urine Collection Type Unknown Urine Color Yellow Urine Clarity Clear Urine pH 6.5 Urine Specific [place] >=1.030 Urine Protein Negative mg/dL (NEG-TRACE) Urine Glucose (UA) >=1000 mg/dL (NEG) Urine Ketones (Stick) Negative mg/dL (NEG) Urine Blood Negative (NEG) Urine Nitrite Negative (NEG) Urine Bilirubin Negative (NEG) Urine Urobilinogen Dipstick 0.2 mg/dL (0.2 mg/dL) Urine Leukocyte Esterase Negative (NEG) Urine RBC Occ /HPF (0-2) Urine WBC Occ /HPF (0-4) Urine Bacteria 0 /HPF (0-FEW) Urine Hyaline Casts Few /HPF Urine Mucus Slight /LPF Urine Opiates Screen Neg (NEG) Urine Methadone Screen Neg (NEG) Urine Barbiturates Neg (NEG) Urine Phencyclidine Screen Neg (NEG) Urine Amphetamine/Methamphetamine Neg (NEG) Urine Benzodiazepines Screen Neg (NEG) Urine Cocaine Screen Neg (NEG) Urine Cannabinoids Screen Neg (NEG) Urine Ethyl Alcohol Neg (NEG) D-Dimer (Rachel) 0.50 ug/mlFEU (0.00-0.50) Troponin I Quantitative < 0.017 ng/mL (0.000-0.055) < 0.017 ng/mL (0.000-0.055) Glucose (Fingerstick) 76 mg/dL (70-99) Test 02/08/19 20:46 02/09/19 07:19 Glucose (Fingerstick) 79 mg/dL (70-99) 125 mg/dL (70-99) Physical Exam HEENT: Neck Supple W Full Motion Chest: Symmetric LUNGS: Clear to Auscultation Heart: S1S2, RRR (SR ), no thrills, no rubs, no gallops, no murmurs Abdomen: Soft N/T Extremities: No Calf Tenderness Neurology: alert, oriented, follow commands Other Exams right wrist arteriotomy site intact, no erythema, swelling, neurovascular status to right intact. Assessment Assessment 1. Chest pain:None further. DDIMER nml. LHC negative for coronary lesions, EF and WM nml. suspect anxiety and GERD 2. NSVT: 10 sec x1 more of WCT rather than true VT per review with underlying RBBB, this is lone occurrence with significant stress contributing. 3. Abnormal EKG: RBBB possibly chronic 4. HTN: controlled 5. HLP 6. DM2: A1C 7.5 on PO meds at home, defer to PCP. 7. Anxiety/stress 8. Morbid obesity with possible BARTON 9. Periodontal disease Recommendations 1. Restart home lisinopril. Pt does takes lipitor at home. 2. Secondary prevention measures. Janumet to restart tomorrow. 3. Wt loss. Continue on PPI. 4. Will need SSRI and benzo for his anxiety will defer to PCP. 5. Discuss about palpitations and presyncopal spells and if so then encouraged to call and will consider outpt event monitor. ROSSANA PURVIS MD 02/09/19 6257: CARDIO Progress Notes Assessment Assessment Patient seen and examined. Agree with STEAM CRANE OPERATOR's assessment and plan. Cardiac catheterization yesterday did not show any significant coronary artery disease. Agree with event monitor as an outpatient to assess arrhythmia burden REYNALDO LAM APRN February 09, 2019 11:27 ROSSANA PURVIS MD February 09, 2019 17:09
[2019-02-09] MEDS: LORazepam 0.5 MG TABLET PO PRN (12:26)
--- NOTE | 2019-02-09 13:55 | PDOC3 ---
[facility]-Discharge Summary Date of Admission: Date of Admission: February 08, 2019 Date of Discharge: Date of Discharge: February 09, 2019 Admission Diagnosis: Admitting Diagnosis: Chest pain Discharge Diagnosis: Discharge Diagnosis: Atypical chest pain Diabetes hypertension Hyperlipidemia Consults: Consults: Cardiology Procedures: Procedures: Cardiac catheter which was clean Hospital Course: Hospital Course: Middle-aged white male presented with chest pain The consult cardiology and he was taken for a cardiac catheter yesterday which was apparently cleaning This morning he looks great and his heart tones are normal his lungs are clear his abdomen was soft extremities no edema we plan to discharge Disposition: Disposition/Orders: D/C to Home Activity: Activity: Resume previous activity Diet: Diet: Regular Medications: Home Meds Reported Medications Fenofibrate (FENOFIBRATE) 160 Mg Tablet, 1 TAB PO DAILY for HTN, #30 TAB 5 Refills 02/08/19 Sitagliptin Phos/Metformin Hcl (JANUMET 50-1,000 MG TABLET) 1 Each Tablet, 1 TAB PO BID for DM, #60 TAB 5 Refills 02/08/19 Lisinopril (LISINOPRIL) 40 Mg Tablet, 1 TAB PO DAILY for HTN, #30 TAB 5 Refills 02/08/19 Glimepiride (GLIMEPIRIDE) 4 Mg Tablet, 1 TAB PO DAILY for DM, #30 TAB 5 Refills 02/08/19 Dapagliflozin Propanediol (FARXIGA) 5 Mg Tablet, 5 MG PO DAILY for DM, TAB 02/08/19 Scheduled Dapagliflozin Propanediol (Farxiga), 5 MG PO DAILY, (Reported) Fenofibrate (Fenofibrate), 1 TAB PO DAILY, (Reported) Glimepiride (Glimepiride), 1 TAB PO DAILY, (Reported) Lisinopril (Lisinopril), 1 TAB PO DAILY, (Reported) Sitagliptin Phos/Metformin Hcl (Janumet 50-1,000 Mg Tablet), 1 TAB PO BID, (Reported) Total Time: Total Time: 33 minutes ELYSSA DERAS III, DO February 09, 2019 13:55
--- NOTE | 2019-02-09 14:13 | PDOC ---
[facility] PROGRESS NOTE Chief Complaint Chief Complaint Chest pain HTN Hyperlipidemia DM FHx of CAD History of Present Illness History of Present Illness Patient seen and examined Discussed w/ Nurse and patients Father Talked about pt having tough time with recent divorce Asked pt if he was interested in taking antidepressant to which he agreed, discussed medication side effect profile Vitals Vitals Vital Signs Date Time Temp Pulse Resp B/P (MAP) Pulse Ox O2 Delivery O2 Flow Rate FiO2 02/09/19 11:00 98.2 83 18 139/78 (98) 97 Room Air 98.2 02/08/19 20:00 2.0 Physical Exam General: Alert, Oriented X3, Cooperative, No acute distress Heart: Regular rate (SR), Normal S1, Normal S2, Other (2/6 systolic murmur to LLS border) Abdomen: Normal bowel sounds, Soft, No tenderness, No hepatosplenomegaly, No masses Extremities: No clubbing, No cyanosis, No edema, Normal pulses, No tenderness/swelling Skin: No rashes, No breakdown, No significant lesion Labs LABS Laboratory Tests Test 02/08/19 16:15 02/08/19 16:33 02/08/19 19:25 02/08/19 20:46 D-Dimer (Rachel) 0.50 ug/mlFEU (0.00-0.50) Troponin I Quantitative < 0.017 ng/mL (0.000-0.055) < 0.017 ng/mL (0.000-0.055) Glucose (Fingerstick) 76 mg/dL (70-99) 79 mg/dL (70-99) Test 02/09/19 07:19 02/09/19 11:46 Glucose (Fingerstick) 125 mg/dL (70-99) 161 mg/dL (70-99) Review of Systems Review of Systems Patient admits to hand shakiness Patient admits to depressive thoughts Assessment and Plan Assessmemt and Plan Problems Medical Problems: (1) V tach Status: Acute Assessment: Chest pain Possible adjustment disorder HTN Hyperlipidemia DM FHx of CAD Plan: Ativan Prozac Follow up with PCP to monitor medication effect OTC Prilosec Home meds DVT ppx Probable Discharge today Comment Review of Relevant I have reviewed the following items rafaela (where applicable) has been applied. Labs Laboratory Tests Test 02/08/19 10:10 02/08/19 13:00 02/08/19 16:15 02/08/19 16:33 White Blood Count 7.9 x10^3/uL (4.0-11.0) Red Blood Count 5.33 x10^6/uL (4.30-5.70) Hemoglobin 15.6 g/dL (13.0-17.5) Hematocrit 46.6 % (39.0-53.0) Mean Corpuscular Volume 87 fL (79-100) Mean Corpuscular Hemoglobin 29 pg (25-35) Mean Corpuscular Hemoglobin Concent 34 g/dL (31-37) Red Cell Distribution Width 14.2 % (11.5-14.5) Platelet Count 141 x10^3/uL (140-400) Neutrophils (%) (Auto) 74 % (31-73) Lymphocytes (%) (Auto) 16 % (24-48) Monocytes (%) (Auto) 8 % (0-9) Eosinophils (%) (Auto) 1 % (0-3) Basophils (%) (Auto) 1 % (0-3) Neutrophils # (Auto) 5.8 x10^3uL (1.8-7.7) Lymphocytes # (Auto) 1.3 x10^3/uL (1.0-4.8) Monocytes # (Auto) 0.6 x10^3/uL (0.0-1.1) Eosinophils # (Auto) 0.1 x10^3/uL (0.0-0.7) Basophils # (Auto) 0.1 x10^3/uL (0.0-0.2) Prothrombin Time 12.4 SEC (11.7-14.0) Prothromb Time International Ratio 1.0 (0.8-1.1) Sodium Level 141 mmol/L (136-145) Potassium Level 4.0 mmol/L (3.5-5.1) Chloride Level 103 mmol/L (98-107) Carbon Dioxide Level 27 mmol/L (21-32) Anion Gap 11 (6-14) Blood Urea Nitrogen 15 mg/dL (8-26) Creatinine 1.0 mg/dL (0.7-1.3) Estimated GFR (Cockcroft-Gault) 81.2 BUN/Creatinine Ratio 15 (6-20) Glucose Level 208 mg/dL (70-99) Hemoglobin A1c 7.6 % (4.8-5.6) Calcium Level 9.3 mg/dL (8.5-10.1) Magnesium Level 1.9 mg/dL (1.8-2.4) Total Bilirubin 0.7 mg/dL (0.2-1.0) Aspartate Amino Transf (AST/SGOT) 10 U/L (15-37) Alanine Aminotransferase (ALT/SGPT) 27 U/L (16-63) Alkaline Phosphatase 59 U/L (46-116) Creatine Kinase 91 U/L (39-308) Troponin I Quantitative < 0.017 ng/mL (0.000-0.055) < 0.017 ng/mL (0.000-0.055) C-Reactive Protein, Quantitative 5.6 mg/L (0-3.3) WQ-Qsi-C-Type Natriuretic Peptide 98 pg/mL (0-124) Total Protein 7.6 g/dL (6.4-8.2) Albumin 4.1 g/dL (3.4-5.0) Albumin/Globulin Ratio 1.2 (1.0-1.7) Triglycerides Level 95 mg/dL (0-150) Cholesterol Level 188 mg/dL (0-200) LDL Cholesterol, Calculated 127 mg/dL (0-100) VLDL Cholesterol, Calculated 19 mg/dL (0-40) Non-HDL Cholesterol Calculated 146 mg/dL (0-129) HDL Cholesterol 42 mg/dL (40-60) Cholesterol/HDL Ratio 4.5 Lipase 103 U/L (73-393) Thyroid Stimulating Hormone (TSH) 2.730 uIU/mL (0.358-3.74) Urine Collection Type Unknown Urine Color Yellow Urine Clarity Clear Urine pH 6.5 Urine Specific [place] >=1.030 Urine Protein Negative mg/dL (NEG-TRACE) Urine Glucose (UA) >=1000 mg/dL (NEG) Urine Ketones (Stick) Negative mg/dL (NEG) Urine Blood Negative (NEG) Urine Nitrite Negative (NEG) Urine Bilirubin Negative (NEG) Urine Urobilinogen Dipstick 0.2 mg/dL (0.2 mg/dL) Urine Leukocyte Esterase Negative (NEG) Urine RBC Occ /HPF (0-2) Urine WBC Occ /HPF (0-4) Urine Bacteria 0 /HPF (0-FEW) Urine Hyaline Casts Few /HPF Urine Mucus Slight /LPF Urine Opiates Screen Neg (NEG) Urine Methadone Screen Neg (NEG) Urine Barbiturates Neg (NEG) Urine Phencyclidine Screen Neg (NEG) Urine Amphetamine/Methamphetamine Neg (NEG) Urine Benzodiazepines Screen Neg (NEG) Urine Cocaine Screen Neg (NEG) Urine Cannabinoids Screen Neg (NEG) Urine Ethyl Alcohol Neg (NEG) D-Dimer (Rachel) 0.50 ug/mlFEU (0.00-0.50) Glucose (Fingerstick) 76 mg/dL (70-99) Test 02/08/19 19:25 02/08/19 20:46 02/09/19 07:19 02/09/19 11:46 Troponin I Quantitative < 0.017 ng/mL (0.000-0.055) Glucose (Fingerstick) 79 mg/dL (70-99) 125 mg/dL (70-99) 161 mg/dL (70-99) Laboratory Tests Test 02/08/19 16:15 02/08/19 16:33 02/08/19 19:25 02/08/19 20:46 D-Dimer (Rachel) 0.50 ug/mlFEU (0.00-0.50) Troponin I Quantitative < 0.017 ng/mL (0.000-0.055) < 0.017 ng/mL (0.000-0.055) Glucose (Fingerstick) 76 mg/dL (70-99) 79 mg/dL (70-99) Test 02/09/19 07:19 02/09/19 11:46 Glucose (Fingerstick) 125 mg/dL (70-99) 161 mg/dL (70-99) Medications Current Medications Aspirin (Children'S Aspirin) 324 mg 1X ONCE PO Last administered on 02/08/19at 10:00; Start 02/08/19 at 10:00; Stop 02/08/19 at 10:27; Status DC Atorvastatin Calcium (Lipitor) 40 mg QHS PO Last administered on 02/08/19at 20:05; Start 02/08/19 at 21:00 Pantoprazole Sodium (Protonix) 40 mg DAILYAC PO Last administered on 02/09/19at 09:03; Start 02/08/19 at 14:00 Amlodipine Besylate (Norvasc) 10 mg 1X ONCE PO Last administered on 02/08/19at 13:55; Start 02/08/19 at 13:30; Stop 02/08/19 at 13:31; Status DC Labetalol HCl (Normodyne Iv Push) 20 mg PRN Q2HR PRN IVP HYPERTENSION, SEE COMMENTS; Start 02/08/19 at 13:30 Clonidine HCl (Catapres) 0.1 mg PRN Q1HR PRN PO HYPERTENSION, SEE COMMENTS; Start 02/08/19 at 14:00 Acetaminophen (Tylenol) 500 mg PRN Q6HRS PRN PO MILD PAIN / TEMP Last administered on 02/08/19at 16:36; Start 02/08/19 at 14:00 Acetaminophen/ Codeine Phosphate (Tylenol #3) 1 tab PRN Q6HRS PRN PO PAIN; Start 02/08/19 at 14:00 Ondansetron HCl (Zofran) 4 mg PRN Q6HRS PRN IV NAUSEA/VOMITING; Start 02/08/19 at 14:00 Ibuprofen (Motrin) 400 mg PRN Q6HRS PRN PO INFLAMMATION Last administered on 02/08/19at 18:20; Start 02/08/19 at 14:00 Insulin Human Lispro (HumaLOG) 0-9 UNITS TIDWMEALS SQ Last administered on 02/09/19at 12:32; Start 02/08/19 at 17:00 Dextrose (Dextrose 50%-Water Syringe) 12.5 gm PRN Q15MIN PRN IV SEE COMMENTS; Start 02/08/19 at 14:00 Lidocaine HCl (Xylocaine-Mpf 1% 2ml Vial) 2 ml STK-MED ONCE .ROUTE ; Start 02/08/19 at 13:57; Stop 02/08/19 at 13:58; Status DC Iohexol (Omnipaque 300 Mg/ml) 100 ml STK-MED ONCE .ROUTE ; Start 02/08/19 at 13:57; Stop 02/08/19 at 13:58; Status DC Heparin Sodium/ Sodium Chloride 500 ml @ As Directed STK-MED ONCE .ROUTE ; Start 02/08/19 at 13:57; Stop 02/08/19 at 13:58; Status DC Fentanyl Citrate (Fentanyl 2ml Vial) 100 mcg STK-MED ONCE .ROUTE ; Start 02/08/19 at 14:40; Stop 02/08/19 at 14:41; Status DC Midazolam HCl (Versed) 2 mg STK-MED ONCE .ROUTE ; Start 02/08/19 at 14:40; Stop 02/08/19 at 14:41; Status DC Heparin Sodium (Porcine) (Heparin Sodium) 10,000 unit STK-MED ONCE .ROUTE ; Start 02/08/19 at 14:40; Stop 02/08/19 at 14:41; Status DC Verapamil HCl (Verapamil) 5 mg STK-MED ONCE .ROUTE ; Start 02/08/19 at 14:40; Stop 02/08/19 at 14:41; Status DC Nitroglycerin (Nitroglycerin) 200 mcg STK-MED ONCE .ROUTE ; Start 02/08/19 at 1 4:40; Stop 02/08/19 at 14:41; Status DC Nitroglycerin (Nitroglycerin) 200 mcg 1X ONCE IART Last administered on 02/08/19at 15:00; Start 02/08/19 at 15:00; Stop 02/08/19 at 15:05; Status DC Verapamil HCl (Verapamil) 2.5 mg 1X ONCE IART Last administered on 02/08/19at 15:00; Start 02/08/19 at 15:00; Stop 02/08/19 at 15:05; Status DC Heparin Sodium (Porcine) (Heparin Sodium) 2,500 unit 1X ONCE IART Last administered on 02/08/19at 15:00; Start 02/08/19 at 15:00; Stop 02/08/19 at 15:05; Status DC Heparin Sodium/ Sodium Chloride (HEPARIN for ARTERIAL LINE FLUSH) 1,000 unit 1X ONCE IART Last administered on 02/08/19at 15:00; Start 02/08/19 at 15:00; Stop 02/08/19 at 15:05; Status DC Heparin Sodium/ Sodium Chloride (HEPARIN for ARTERIAL LINE FLUSH) 1,000 unit 1X ONCE IART Last administered on 02/08/19at 15:00; Start 02/08/19 at 15:00; Stop 02/08/19 at 15:05; Status DC Midazolam HCl (Versed) 2 mg 1X ONCE IV Last administered on 02/08/19at 15:00; Start 02/08/19 at 15:00; Stop 02/08/19 at 15:05; Status DC Fentanyl Citrate (Fentanyl 2ml Vial) 100 mcg 1X ONCE IV Last administered on 02/08/19at 15:00; Start 02/08/19 at 15:00; Stop 02/08/19 at 15:05; Status DC Iohexol (Omnipaque 300 Mg/ml) 100 ml 1X ONCE IART Last administered on 02/08/19at 15:00; Start 02/08/19 at 15:00; Stop 02/08/19 at 15:05; Status DC Lidocaine HCl (Xylocaine-Mpf 1% 2ml Vial) 2 ml 1X ONCE INJ Last administered on 02/08/19at 15:00; Start 02/08/19 at 15:00; Stop 02/08/19 at 15:05; Status DC Midazolam HCl (Versed) 2 mg STK-MED ONCE .ROUTE ; Start 02/08/19 at 15:30; Stop 02/08/19 at 15:31; Status DC Sodium Chloride 1,000 ml @ 60 mls/hr [id number] IV Last administered on 02/08/19at 16:35; Start 02/08/19 at 16:03 Nitroglycerin (Nitrostat) 0.4 mg PRN Q5MIN PRN SL CHEST PAIN; Start 02/08/19 at 16:15 Lorazepam (Ativan) 0.5 mg PRN Q12HRS PRN PO ANXIETY Last administered on 02/09/19at 12:26; Start 02/08/19 at 20:00 Active Scripts Active Reported Fenofibrate 160 Mg Tablet 1 Tab PO DAILY Janumet 50-1,000 Mg Tablet (Sitagliptin Phos/Metformin Hcl) 1 Each Tablet 1 Tab PO BID Lisinopril 40 Mg Tablet 1 Tab PO DAILY Glimepiride 4 Mg Tablet 1 Tab PO DAILY Farxiga (Dapagliflozin Propanediol) 5 Mg Tablet 5 Mg PO DAILY Vitals/I & O Vital Sign - Last 24 Hours 02/08/19 02/08/19 02/08/19 02/08/19 15:00 15:00 15:00 15:52 Temp 98.2 98.2 Pulse 85 87 84 Resp 16 16 17 B/P (MAP) 151/84 (106) Pulse Ox 93 94 O2 Delivery Room Air Nasal Cannula O2 Flow Rate 2.0 02/08/19 02/08/19 02/08/1902/08/19 16:15 16:30 16:45 17:00 Pulse 86 92 88 90 B/P (MAP) 173/97 (122) 151/84 (106) 151/89 (109) 148/90 (109) O2 Delivery Room Air Room Air Room Air Room Air 02/08/19 02/08/19 02/08/19 02/08/19 17:15 17:30 17:45 18:00 Pulse 88 92 98 92 B/P (MAP) 149/80 (103) 144/84 (104) 146/88 (107) 158/86 (110) O2 Delivery Room Air Room Air Room Air Room Air 02/08/19 02/08/19 02/08/19 02/08/19 18:15 19:20 20:00 22:50 Temp 98.0 98.3 98.0 98.3 Pulse 87 87 82 Resp 20 18 B/P (MAP) 133/88 (103) 155/104 (121) 146/83 (104) Pulse Ox 92 94 O2 Delivery Room Air Room Air Nasal Cannula Room Air O2 Flow Rate 2.0 02/09/19 02/09/19 02/09/19 02/09/19 03:15 07:00 07:30 11:00 Temp 97.6 98.2 98.2 97.6 98.2 98.2 Pulse 83 87 83 Resp 20 18 18 B/P (MAP) 133/81 (98) 148/92 (110) 139/78 (98) Pulse Ox 95 97 97 O2 Delivery Room Air Room Air Room Air Room Air Intake and Output 02/08/19 02/08/19 02/09/19 14:59 22:59 06:59 Intake Total 180 ml 760 ml Balance 180 ml 760 ml FARAZ DERASL K III DO February 09, 2019 14:13
[2019-02-09] MEDS ORDERED: FLUO20CA16 PO (14:23)
[2019-02-09] MEDS ORDERED: LORA0.5T96 PO (14:24)
[2019-02-09] MEDS ORDERED: OMEP20TA63 PO (14:25)
[2019-02-09 15:00] VITALS: BP 149/92
--- NOTE | 2019-02-09 15:10 | NUR ---
Discharge Note: JUSTINE MCGUIRE [address] Discharge instructions and discharge home medications reviewed with Patient and a copy given. All questions have been answered and understanding verbalized. The following instructions and handouts were given: medications, follow up, diet, palpitations, dizziness, post cath care. Discontinued lines and drains: IV removed, no lines present. Patient discharged to home. Patient left with family member while I was in another patient's room. All discharge paperwork and teaching was complete.
== END 2019-02-09 15:00 | disposition home or self-care (01) | DRG 287 ==
LOC: ER 09:39 → EEVIPCON 09:39 → ED HOLD 10:00 → 2 NORTH 13:07
PROVIDERS: ADMIT Internal Medicine; ATTEND Internal Medicine
PROC: 4A023N7 Measurement of Cardiac Sampling and Pressure, Left Heart, Percutaneous Approach (ICD-10-PCS; principal; 2019-02-08)
PROC: B2151ZZ Fluoroscopy of Left Heart using Low Osmolar Contrast (ICD-10-PCS; 2019-02-08)
PROC: B2111ZZ Fluoroscopy of Multiple Coronary Arteries using Low Osmolar Contrast (ICD-10-PCS; 2019-02-08)
DX: I47.2 Ventricular tachycardia (principal); R07.89 Other chest pain; E11.9 Type 2 diabetes mellitus without complications; E78.00 Pure hypercholesterolemia, unspecified; I10 Essential (primary) hypertension; E66.01 Morbid (severe) obesity due to excess calories; E78.5 Hyperlipidemia, unspecified; F41.9 Anxiety disorder, unspecified; I45.10 Unspecified right bundle-branch block; K05.6 Periodontal disease, unspecified; K76.0 Fatty (change of) liver, not elsewhere classified; Z82.49 Family history of ischemic heart disease and other diseases of the circulatory system; Z68.32 Body mass index [BMI] 32.0-32.9, adult; Z88.8 Allergy status to other drugs, medicaments and biological substances; Z79.899 Other long term (current) drug therapy; Z79.84 Long term (current) use of oral hypoglycemic drugs
CPT/HCPCS: 36415; 71046; 76705; 80053; 80061; 80307; 81001; 82550; 82962; 83036; 83690; 83735; 83880; 84443; 84484; 85025; 85379; 85610; 86140; 93005; 93306; 93458; 99152; C1769; C1892; J1644; J1815; J2250; J3010; J3490; Q9967; 99285-25